=== PATIENT | male | born 1960 | race Caucasian/White ===

== ENCOUNTER 2019-09-04 16:07 | Outpatient (CLI) | payer MEDICARE ==
--- NOTE | 2019-09-04 16:30 | RAD ---
EXAM: XR Lumbar Spine 2 Or 3 View PROVIDED CLINICAL HISTORY: Lower back pain. Failed back fusion. COMPARISON: None FINDINGS: Lateral projections demonstrate postsurgical changes of the lumbar spine. Bipedicular screws and post erior rods transfix the L2-3 and L5-S1 levels. No hardware complication is appreciated on provided lateral images. Dorsal column stimulator device is seen overlying the soft tissues lower lumbar spine . There is increased density overlying the anterior L2-3 interspace which cannot be further localize. This could be postoperative in origin. No fracture or subluxation is seen on lateral imagin g. Vertebral body heights are within normal limits. Scattered osteophytes are identified in the lumbar spine. Vascular calcifications are seen in the abdominal aorta and iliac arteries. IMPRESSION: Postsurgical and degenerative changes of the lumbar spine without subluxation.
== END 2019-09-04 16:08 | disposition home or self-care (01) ==
LOC: TBSIIMAG 16:07
PROVIDERS: ATTEND Neurological Surgery
DX: T84.498A Other mechanical complication of other internal orthopedic devices, implants and grafts, initial encounter (principal); M54.5 Low back pain; M47.816 Spondylosis without myelopathy or radiculopathy, lumbar region; Z98.890 Other specified postprocedural states
CPT/HCPCS: 72100